=== PATIENT | female | born 1930 | race Caucasian/White ===

== ENCOUNTER 2019-02-05 09:52 | Inpatient (IN) | payer MEDICARE, OTHER ==
--- NOTE | 2019-02-05 10:20 | RAD ---
RIGHT HIP 2 VIEWS: Date: 02/05/19 HISTORY: Fall, right hip pain. FINDINGS/IMPRESSION: There is an intertrochanteric fracture involving the right proximal femur. POS: [facility]
--- NOTE | 2019-02-05 10:41 | RAD ---
RADIOGRAPH CHEST 1 VIEW: DATE: 02/05/2019 TIME: 10:18 AM HISTORY: 88-year-old female for preoperative clearance COMPARISON: None available FINDINGS: Cardiomegaly. Pulmonary venous engorgement. Hyperinflation consistent with COPD. Ectasia and tortuosi ty of thoracic aorta. No consolidation. Mild blunting of lateral costophrenic angles. No pneumothorax. IMPRESSION: 1. Cardiomegaly and pulmonary venous congestion. 2. Small bilateral pleural effusions versus pleural thickening 3. Emphysema
[2019-02-05] MEDS ORDERED: Clindamycin/D5W 900 MG in Premix Bag 1 BAG IVPB SCH (11:45)
[2019-02-05 12:20] LABS: #Basophils 0.1 thou/uL (0.0-0.2); #Eosinphils 0.1 thou/uL (0.0-0.7); #Lymphocytes 1.2 thou/uL (1.20-3.40); #Monocytes 0.5 thou/uL (0.11-0.59); #Neutrophils 6.5 thou/uL (1.40-6.50); %Lymphocytes 14.6 % (21.0-51.0); %Monocytes 5.7 % (0.0-10.0); %Neutrophils 77.7 % (42.0-75.0); Hemoglobin 11.3 g/dL (12.0-16.0); Mean Corpuscular Hemoglobin 31.7 pg (27.0-31.0); Mean Corpuscular Volume 95.8 fL (78.0-98.0); Mean Platelet Volume 9.2 fL (7.4-10.4); Platelet Count 271 thou/uL (130-400); RBC Distribution Width 14.8 % (11.5-14.5); Red Blood Cell (RBC) Count 3.56 mill/uL (4.20-5.40); White Blood Cell (WBC) Count 8.3 thou/uL (4.8-10.8)
--- NOTE | 2019-02-05 12:26 | CON ---
DATE OF CONSULTATION: This is Lio Watkins PA-C dictating a report for Jose Daniel Schroeder MD. HISTORY: We were asked by ER and Trauma to see the patient. The patient was in her normal state of health when she was getting some pants out of closet unfortunately fell. She fell a few days ago on her right hip, but she continued to be able to keep moving. She fell on the same hip and her definitely noticed she had some problems. Denies any loss of consciousness or hitting her head. They have recently moved back to [place], but she has been falling quite a bit. She has had Parkinson's for 18 years, and although she is able to answer questions and function fairly well, and state the falls have been more and more frequent. Pain is about a 5 when lying in bed. When we move her, it ramps up even higher. She has good sensations in both lower extremities. She is able to wiggle her toes. No other injuries sustained in the fall. PAST MEDICAL HISTORY: Positive for Parkinson's and hypertension. She has a heart arrhythmia, questionable murmur. PAST SURGICAL HISTORY: She has had splenectomy, appendectomy, partial hysterectomy, right wrist and hand surgery. INJURY: She has had a fractured pelvis, nonsurgical. She also had a fracture to her right cheekbone or orbit it sounds like. FAMILY HISTORY: Noncontributory to this admission. CURRENT MEDICATIONS: Sinemet, Folbic, midodrine, Requip, amantadine, Nuplazid, OTC med. She was taking aspirin, but has stopped taking this, and AREDS2. ALLERGIES: PENICILLIN, XYLOCAINE, HYDRALAZINE, GABAPENTIN, AND TRAMADOL. SOCIAL HISTORY: Retired. No alcohol, nicotine or drug products whatsoever. Recently moved back to [facility]. 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 No chest pain or shortness of breath. No neurological deficits. Otherwise, rest of review of systems is negative. PHYSICAL EXAMINATION: GENERAL: Well-nourished, pleasant lady, resting on gurney in room 9. Speech clear, fluent, and oriented x3. HEENT: Face symmetric. Tongue midline. NECK: Supple. Trachea midline. UPPER EXTREMITIES: Equal size, shape, symmetry, normal bulk and tone with exception of the right hand, that has some scarring and you can see that she has a flexion of her digits, and she is able to otherwise move fairly well. Sensations are intact. RESPIRATORY: No distress. ABDOMEN: Soft and nontender. PELVIS: No pain with rocking pelvis, but did cause right hip pain doing so. RIGHT LOWER EXTREMITY: Mildly shortened. DP and PT pulses are intact as are sensations. ASSESSMENT: Right hip pain. PLAN: I spoke with the patient and has been extensively elected to a [employer] plating dynamic hip screw. I explained the procedure technique to the and . They understand. They are amenable to go forth with surgery. I just need to get okay from Trauma to make sure she is medically stable and we would like to get her on the surgery schedule today. I went over the x-rays with the family, answered their questions, addressed their concerns, and they are so amenable to go forth with surgery. Job ID: [id number]
[2019-02-05 12:28] LABS: INR-International Normal Ratio 1.1; PTT 27.3 SEC (22.9-36.1); Prothrombin Time 14.2 SEC (12.0-14.7)
[2019-02-05 12:35] LABS: ALT (SGPT) 17 U/L (8-55); AST (SGOT) 24 U/L (5-34); Albumin 3.9 g/dL (3.4-4.8); Alkaline Phosphatase 101 U/L (40-150); Anion Gap 13 mmol/L (10-20); BUN (Urea Nitrogen) 20 mg/dL (9.8-20.1); Bilirubin, Total 0.6 mg/dL (0.2-1.2); Calc. Creatinine Clearance 0 mL/min (70-130); Calcium 9.2 mg/dL (7.8-10.44); Carbon Dioxide 27 mmol/L (23-31); Chloride 101 mmol/L (98-107); Estimated GFR-MDRD 38; Globulin 2.9 g/dL (2.4-3.5); Glucose 110 mg/dL (83-110); Potassium 4.3 mmol/L (3.5-5.1); Protein, Total 6.8 g/dL (6.0-8.3); Sodium 137 mmol/L (136-145)
[2019-02-05 12:57] LABS: CKMB 2.3 ng/mL (0-6.6)
[2019-02-05] MEDS ORDERED: Promethazine HCl 25 MG/ML VIAL IM PRN (14:13)
[2019-02-05] MEDS ORDERED: Dextrose 50% Abboject 50 ML SYRINGE SLOW IVP PRN (14:13)
[2019-02-05] MEDS ORDERED: Dextrose 5% in Water 1,000 ML IV PRN (14:13)
[2019-02-05] MEDS ORDERED: Ondansetron PF 4 MG/2 ML Vial IVP PRN (14:13)
[2019-02-05] MEDS ORDERED: Clindamycin/D5W 900 mg/50 ml Premix Bag ONE (14:34)
--- NOTE | 2019-02-05 15:18 | HP ---
This is Laura Juarez PA-C dictating a report for Axel Mora DO. TRAUMA SURGEON: Dr. Mora. CONSULTING PHYSICIAN: Dr. Schroeder. HISTORY OF PRESENT ILLNESS: The patient is an 88-year-old female, who reported a mechanical fall earlier today. The patient reported that she was reaching up to get a pair of pants from her closet when she had a fall. She reports no loss of consciousness. No dizziness or lightheadedness. She did not hit her head. She denies anticoagulation use as well. She denies numbness and tingling to her right lower extremity. Denies shortness of breath and chest pain. Denies nausea, vomiting, or diarrhea. REVIEW OF SYSTEMS: All additional 10-point review of systems negative except as indicated above. PAST MEDICAL HISTORY: Hypertension, Parkinson's, recent history of hallucinations, status post inpatient hospitalization with delirium, history of valvular disease needing valve replacement therapy, but the patient is a poor candidate. PAST SURGICAL HISTORY: Appendectomy, splenectomy, partial hysterectomy, and right wrist and right hand surgeries. SOCIAL HISTORY: The patient denies tobacco use. Drinks alcohol about once a year. Denies drug abuse. She did grow up in a home, where her father smoked in the home. Her previously smoked in the home, but has not smoked for the past 30 years. The patient lives in an independent living facility and has recently moved here. She had an appointment with a primary care physician to be seen for the first time today. There are no previous medical records in our system. MEDICATIONS: 1. Midodrine. 2. Sinemet. 3. Requip. 4. Amantadine. 5. Nuplazid. ALLERGIES: PENICILLIN, XYLOCAINE, HYDRALAZINE, GABAPENTIN, AND TRAMADOL. PHYSICAL EXAMINATION: VITAL SIGNS: Temperature 98.8, pulse 80, respirations 16, oxygen saturation 97% on room air, and blood pressure 176/112. PRIMARY SURVEY: Airway intact. Adequate breath sounds bilaterally. 2+ pulses in bilateral radials, femorals, and DPs. GCS is 15. Gross motor and sensation are intact. No lacerations, bruises, or external bleeding. SECONDARY SURVEY: HEAD: Normocephalic and atraumatic. No gross palpable skull deformities or tenderness. EYES: Pupils 3 to 2, equal, round, and reactive to light bilaterally. ENT: No hemotympanum. No epistaxis. No septal hematoma. Midface stable to manipulation. No blood in the oropharynx. Dentition is intact. No anterior neck injury/tenderness/crepitus. C-SPINE: No step-offs or deformities or tenderness to palpation. C-collar not in place. CHEST: Nontender. No crepitus or abrasions. No ecchymosis. Equal chest movement. CARDIAC: Regular rate and rhythm. Positive prominent mid systolic murmur. ABDOMEN: Soft, nontender, and nondistended. PELVIS: Stable to palpation. Positive right-sided pelvis and thigh tenderness. No abrasions or ecchymosis. RECTAL: Deferred. GENITOURINARY: Deferred. EXTREMITIES: No gross deformities. No abrasions or ecchymosis. 2+ pulses in bilateral radials, femorals, and DPs. BACK/SPINE: No step-offs or deformities or tenderness to palpation of the thoracic or lumbar spine. No abrasions or ecchymosis noted. 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 Gross normal sensation x4 extremities. LABORATORY FINDINGS: White count 8.3, hemoglobin 11.3, hematocrit 34.2, and platelets 271. INR 1.1. Sodium 137, potassium 4.3, chloride 101, carbon dioxide 27, BUN 20, creatinine 1.34, glucose 110, total bili 0.6, AST 24, and ALT 17. Troponin 0.039. DIAGNOSTIC FINDINGS: Chest x-ray demonstrates cardiomegaly and pulmonary venous congestion. Small bilateral pleural effusions versus pleural thickening, emphysema. X-ray of the right hip demonstrates there is an intertrochanteric fracture involving the right proximal femur. ASSESSMENT: 1. Status post mechanical fall from standing. 2. Right intertrochanteric femur fracture. 3. Acute kidney injury. 4. Cardiac valvular disease, unspecified. 5. Troponinemia. 6. History of hypertension, Parkinson's, and hallucinations associated with delirium. PLAN: The patient is to be admitted to the surgical floor. We will hold off on orthopedic surgical management for now while we further evaluate her heart valvular disease. We will complete an echo, repeat laboratory findings, and reassess for risk stratification for OR tomorrow. She will have a regular diet and will be n.p.o. tomorrow in case she is able to go to the operating room. We will also trend her troponins as it is slightly elevated on presentation to the emergency department. However, the patient denies chest pain, shortness of breath, or other concerning symptoms for possible NM. Her EKG was normal sinus with no ST-segment changes and such we will continue to monitor for now until her troponins downtrend. Postoperatively, she will work with Physical and Occupational Therapy. The patient is allergic to tramadol, hydralazine, and gabapentin and such we will not administer those medications as it is usually a part of the trauma admission protocol. Pain control with Tylenol, p.r.n. Flexeril and p.r.n. morphine. We will hold NSAIDs as she has an acute kidney injury. The patient was discussed with Dr. Mora this afternoon before this dictation. Job ID: [id number]
[2019-02-05] MEDS: Acetaminophen 1,000 MG in Premix Bag 1 BAG IVPB SCH ×2 (17:12→23:42)
[2019-02-05] MEDS ORDERED: Labetalol HCl 100 MG/20 ML VIAL SLOW IVP PRN (17:24)
[2019-02-05 18:07] VITALS: BMI 19.1
[2019-02-05 18:34] LABS: Troponin I 0.028 ng/mL (< 0.028)
[2019-02-05] MEDS: Senokot S 8.6-50 MG TAB PO SCH (19:50)
[2019-02-05] MEDS: Cyclobenzaprine 10 MG TAB PO PRN (20:44)
[2019-02-06] MEDS: Acetaminophen 1,000 MG in Premix Bag 1 BAG IVPB SCH ×2 (05:24→11:30)
[2019-02-06 06:12] LABS: #Basophils 0.1 thou/uL (0.0-0.2); #Eosinphils 0.2 thou/uL (0.0-0.7); #Lymphocytes 1.3 thou/uL (1.20-3.40); #Monocytes 0.6 thou/uL (0.11-0.59); #Neutrophils 4.9 thou/uL (1.40-6.50); %Basophils 0.8 % (0.0-1.0); %Eosinophils 3.5 % (0.0-10.0); %Lymphocytes 18.6 % (21.0-51.0); %Monocytes 8.7 % (0.0-10.0); %Neutrophils 68.4 % (42.0-75.0); Hemoglobin 10.9 g/dL (12.0-16.0); Mean Corpuscular HGB CONC 31.2 g/dL (32.0-36.0); Mean Corpuscular Hemoglobin 30.2 pg (27.0-31.0); Mean Corpuscular Volume 96.8 fL (78.0-98.0); Mean Platelet Volume 9.3 fL (7.4-10.4); Platelet Count 267 thou/uL (130-400); RBC Distribution Width 14.8 % (11.5-14.5); Red Blood Cell (RBC) Count 3.61 mill/uL (4.20-5.40); White Blood Cell (WBC) Count 7.1 thou/uL (4.8-10.8)
[2019-02-06 06:31] LABS: Anion Gap 10 mmol/L (10-20); BUN (Urea Nitrogen) 16 mg/dL (9.8-20.1); Calc. Creatinine Clearance 29 mL/min (70-130); Calcium 8.8 mg/dL (7.8-10.44); Carbon Dioxide 29 mmol/L (23-31); Chloride 102 mmol/L (98-107); Estimated GFR-MDRD 46; Glucose 99 mg/dL (83-110); Magnesium 2.1 mg/dL (1.6-2.6); Phosphorus 3.5 mg/dL (2.3-4.7); Potassium 3.8 mmol/L (3.5-5.1); Sodium 137 mmol/L (136-145)
[2019-02-06] MEDS ORDERED: Potassium Phosphate 15 MMOL in Sodium Chloride 0.9% 250 ML 250 ML IVPB SCH (08:00)
[2019-02-06] MEDS: Senokot S 8.6-50 MG TAB PO SCH ×2 (08:13→20:05)
[2019-02-06] MEDS: Polyethylene Glycol 3350 17 GM Packet PO SCH (08:13)
[2019-02-06] MEDS: rOPINIRole HCl 1 MG TAB PO SCH ×3 (08:54→20:03)
[2019-02-06] MEDS: Amantadine HCl 100 mg Capsule PO SCH (08:54)
[2019-02-06] MEDS: Carbidopa/Levodopa CR 50-200 mg Tablet PO SCH ×3 (08:54→20:03)
[2019-02-06] MEDS ORDERED: CARBIDOPA PO SCH (09:00)
[2019-02-06] MEDS ORDERED: LEVODOPA PO SCH (09:00)
[2019-02-06] MEDS ORDERED: ROPINIROLE HCL 3 MG PO SCH (09:00)
[2019-02-06] MEDS ORDERED: PIMAVANSERIN TARTRATE 34 MG PO SCH ×2 (09:00)
--- NOTE | 2019-02-06 12:51 | PRG ---
DATE OF SERVICE: 02/06/2019 SUBJECTIVE: This is a well-appearing, elderly female, sitting up in bed. On exam this morning, the patient's reports she has a history of a cath at a prior hospital stay where they decided not to do a valve repair. The patient reports that her pain is well controlled. She is n.p.o. for surgery with Dr. Schroeder. All questions were answered. OBJECTIVE: VITAL SIGNS: Temperature 98.2, pulse 72, blood pressure 101/82, respirations 18, and O2 95% on room air. GENERAL: This is a well-appearing, elderly female, sitting up in bed, interactive, able to answer questions. CARDIAC: Regular rate and rhythm. A 3/6 systolic murmur. No rubs or gallops. LUNGS: Bilaterally clear to auscultation. Equal chest rise bilaterally. No rales or rhonchi. ABDOMEN: Soft, nontender, and nondistended. EXTREMITIES: 2+ pulses in bilateral upper and lower extremities. NEUROLOGIC: 5/5 strength in upper and lower extremities. Gross normal sensation, intact. GCS 15. LABORATORY FINDINGS: White blood cell 7.1, hemoglobin 10.9, hematocrit 34.9, and platelets 267. Sodium 137, potassium 3.8, chloride 102, carbon dioxide 29, BUN 16, creatinine 1.13, GFR 46, phosphorus 3.5, and magnesium 2.1. Troponin 0.028. DIAGNOSTIC FINDINGS: Echocardiogram, 02/06/2019, ejection fraction visually estimated at 50% to 55%. Left ventricular size is normal. Mild concentric left ventricular hypertrophy. Mildly dilated left atrium. Severe aortic stenosis. Mild aortic regurgitation. Stebzhqp-[id number] mitral regurgitation present. Rbxvkkyf-[id number] tricuspid regurgitation. Right ventricular systolic pressure elevated. ASSESSMENT: 1. Status post mechanical fall from standing. 2. Right intertrochanteric femur fracture. 3. Acute kidney injury, improving. 4. Severe aortic stenosis. 5. Elevated troponin, resolved. 6. History of hypertension, Parkinson's, hallucinations associated with delirium. PLAN: The patient will be n.p.o. for possible surgery today after echocardiogram. The patient denies chest pain or shortness of breath. Postoperatively, we will restart her on a heart healthy diet. She will work with physical and occupational therapy. The patient is allergic to tramadol, hydralazine, gabapentin, and we will not administer those medications. Pain will be controlled with Tylenol, p.r.n. Flexeril, and p.r.n. morphine. We will continue to hold NSAIDs at this time with her acute kidney injury that is improving. The patient was seen and evaluated with Dr. Mora. Family was at bedside and is in agreement with the plan. Job ID: [id number] MTDD
[2019-02-06] MEDS ORDERED: Clindamycin/D5W 900 mg/50 ml Premix Bag ONE (13:08)
[2019-02-06] MEDS ORDERED: Levofloxacin 500 mg/D5W 100 ml Premix Bag ONE (13:09)
[2019-02-06] MEDS ORDERED: Fentanyl 100 MCG/2 ML VIAL ONE ×2 (13:31→15:00)
[2019-02-06] MEDS ORDERED: Rocuronium Bromide 10 MG/ML (10ML VIAL) ONE (14:16)
[2019-02-06] MEDS ORDERED: PROPOFOL 200 MG/20 ML VIAL ONE (14:16)
[2019-02-06] MEDS ORDERED: Ondansetron PF 4 MG/2 ML Vial ONE (14:16)
[2019-02-06] MEDS ORDERED: SUGAMMADEX SODIUM 500 MG/5 ML VIAL ONE (14:42)
[2019-02-06] MEDS ORDERED: Promethazine HCl 25 MG/ML VIAL IM PRN (14:51)
[2019-02-06] MEDS ORDERED: Ondansetron HCl/PF 4 MG/2 ML Vial IVP PRN (14:51)
[2019-02-06] MEDS ORDERED: Promethazine HCl 25 MG/ML VIAL SLOW IVP PRN (14:51)
--- NOTE | 2019-02-06 16:05 | RAD ---
Right hip 2 views intraoperative fluoroscopy. HISTORY: Hip fracture. FINDINGS: Intraoperative fluoroscopy was provided for internal fixation is performed by Dr. Schroeder . Spot fluoroscopic images show compression nail and side plate to transfix the right hip fracture. Alignment is anatomic. Fluoroscopy time 35 seconds.
[2019-02-06] MEDS ORDERED: Glycerin Adult Supp. (12 ct jar) RC PRN (19:57)
[2019-02-06] MEDS: Milk Of Magnesia 30 ML UDCUP PO PRN (20:02)
[2019-02-06] MEDS: Clindamycin/D5W 900 MG in Premix Bag 1 BAG IVPB SCH (20:05)
--- NOTE | 2019-02-06 21:01 | OP ---
DATE OF PROCEDURE: 02/06/2019 PROCEDURE PERFORMED: Open reduction internal fixation of right proximal femur fracture. PREOPERATIVE DIAGNOSIS: Right intertrochanteric femur fracture. POSTOPERATIVE DIAGNOSIS: Right intertrochanteric femur fracture. COMPLICATIONS: None. ESTIMATED BLOOD LOSS: 100 mL. ANESTHESIA: General. MANUFACTURING SUPERVISOR: Betzy Gonzalez PA-C. IMPLANT: Synthes three-hole dynamic hip screw and plate. INDICATIONS: Ms. Chacon is an 88-year-old female, who fell and fractured her proximal femur. She sustained an intertrochanteric fracture. She is indicated for open reduction and internal fixation to restore anatomic alignment to promote healing. Risks have been reviewed in detail. She elected to proceed with the operation. DESCRIPTION OF PROCEDURE: Ms. Chacon was identified in the preoperative holding area. Her correct extremity was marked. She was carried to the operating room. She was positioned supine. General anesthesia was induced. A multidisciplinary time-out was performed. The right lower extremity was prepped and draped in sterile fashion. We began the procedure with an incision over the lateral thigh. We dissected down through the subcutaneous tissues and incised the fascia. We split the vastus lateralis. At this point, we inserted a K-wire into the femoral head. We then used intraoperative x-ray to confirm guidewire placement. We measured an 80 mm length screw. We then overdrilled the guidewire. At this point, we placed our central screw and sideplate. Three screws were placed through the plate locking the plate to the bone. We took final images. We irrigated. We closed with 0 Vicryl suture, 2-0 Vicryl suture, and roro for the skin. A sterile dressing was applied. The patient was taken to the recovery room in good condition without complication at this point. Job ID: [id number]
[2019-02-06] MEDS: Morphine 2 MG/ML SYRINGE SLOW IVP PRN (22:55)
--- NOTE | 2019-02-07 00:56 | CON ---
DATE OF CONSULTATION: REASON FOR CONSULTATION: The patient is an unfortunate 88-year-old woman who has a history of Parkinson disease and severe aortic stenosis, who suffered a hip fracture. The patient has had Parkinson's for many years. She has a severe tremor. The patient also has severe aortic stenosis. She had been evaluated in [place] recently. She underwent a complete evaluation including cardiac catheterization. She was felt to be at a prohibitively risk for TAVR. The patient unfortunately suffered a hip fracture today and underwent surgery. She apparently had no complications. The patient denies having any chest pain or dyspnea. PAST MEDICAL HISTORY: Significant for: 1. Aortic stenosis. 2. Parkinson disease. 3. Hypertension. ALLERGIES: SHE IS ALLERGIC TO: 1. GABAPENTIN. 2. HYDRALAZINE. 3. LIDOCAINE. 4. PENICILLIN. 5. XYLOCAINE. 6. TRAMADOL. PAST SURGICAL HISTORY: MEDICATIONS: On admission: 1. Midodrine 10 mg one tablet daily. 2. Sinemet 10, 100 mg daily. 3. Requip 1 mg daily. SOCIAL HISTORY: Nonsmoker. PHYSICAL EXAMINATION: GENERAL: This is an elderly woman who has a severe tremor, in no acute distress. VITAL SIGNS: Blood pressure 128/78. NECK: Showed no jugular venous distention. LUNGS: Clear to auscultation. HEART: Regular rate and rhythm. Normal S1 and S2 with a 3/6 systolic ejection murmur. ABDOMEN: Nondistended. EXTREMITIES: Showed no edema, vascular and radial pulses 2+. LABORATORY DATA: Sodium 137, potassium 3.8, chloride 103, bicarbonate 29, BUN 16, creatinine 1.13. White blood cell count 7.1, hemoglobin 10.9, hematocrit 34.9 and her platelets are 267. INR 1.1. Her echocardiogram revealed normal left ventricular ejection fraction with severe aortic stenosis. Her EKG revealed normal sinus rhythm, left axis deviation and left ventricular hypertrophy IMPRESSION: 1. Status post hip surgery. 2. Severe aortic stenosis. 3. Parkinson disease. 4. Mitral regurgitation. PLAN: This unfortunate woman has severe aortic stenosis and Parkinson disease. She has undergone evaluation for TAVR and felt apparently to be a prohibitive risk. Fortunately, she underwent surgery today and apparently had no significant cardiac complications. It is imperative that this patient not become volume depleted or hypotensive. I will follow this patient with you through her hospitalization in my office and Dr. Mora will be the admitting physician. Job ID: [id number]
[2019-02-07] MEDS: Cyclobenzaprine 10 MG TAB PO PRN (02:58)
[2019-02-07] MEDS: Clindamycin/D5W 900 MG in Premix Bag 1 BAG IVPB SCH (05:20)
[2019-02-07] MEDS: Morphine 2 MG/ML SYRINGE SLOW IVP PRN (05:23)
[2019-02-07 06:09] LABS: #Eosinphils 0.1 thou/uL (0.0-0.7); #Lymphocytes 0.8 thou/uL (1.20-3.40); #Monocytes 0.8 thou/uL (0.11-0.59); #Neutrophils 6.2 thou/uL (1.40-6.50); %Basophils 0.3 % (0.0-1.0); %Eosinophils 1.7 % (0.0-10.0); %Lymphocytes 10.1 % (21.0-51.0); %Monocytes 10.5 % (0.0-10.0); %Neutrophils 77.4 % (42.0-75.0); Hemoglobin 9.3 g/dL (12.0-16.0); Mean Corpuscular HGB CONC 32.4 g/dL (32.0-36.0); Mean Corpuscular Hemoglobin 30.8 pg (27.0-31.0); Mean Corpuscular Volume 95.2 fL (78.0-98.0); Mean Platelet Volume 9.3 fL (7.4-10.4); Platelet Count 228 thou/uL (130-400); RBC Distribution Width 14.7 % (11.5-14.5); Red Blood Cell (RBC) Count 3.02 mill/uL (4.20-5.40)
[2019-02-07 06:24] LABS: Anion Gap 12 mmol/L (10-20); BUN (Urea Nitrogen) 20 mg/dL (9.8-20.1); Calc. Creatinine Clearance 27 mL/min (70-130); Calcium 8.6 mg/dL (7.8-10.44); Carbon Dioxide 27 mmol/L (23-31); Chloride 101 mmol/L (98-107); Estimated GFR-MDRD 41; Glucose 121 mg/dL (83-110); Magnesium 1.9 mg/dL (1.6-2.6); Phosphorus 3.8 mg/dL (2.3-4.7); Potassium 4.7 mmol/L (3.5-5.1); Sodium 135 mmol/L (136-145)
[2019-02-07] MEDS ORDERED: Ibuprofen 200 MG TAB PO PRN (08:39)
[2019-02-07] MEDS ORDERED: Lactated Ringer's 250 ML IV SCH (08:45)
[2019-02-07] MEDS ORDERED: Ibuprofen 800 MG TAB PO SCH (08:45)
[2019-02-07] MEDS ORDERED: Morphine 4 MG/ML VIAL ONE (10:08)
[2019-02-07] MEDS ORDERED: Morphine 2 MG/ML SYRINGE SLOW IVP SCH (10:15)
[2019-02-07] MEDS: rOPINIRole HCl 1 MG TAB PO SCH ×3 (10:29→20:17)
[2019-02-07] MEDS: Polyethylene Glycol 3350 17 GM Packet PO SCH (10:29)
[2019-02-07] MEDS: Amantadine HCl 100 mg Capsule PO SCH (10:29)
[2019-02-07] MEDS: Senokot S 8.6-50 MG TAB PO SCH ×2 (10:29→20:17)
[2019-02-07] MEDS: Acetaminophen 325 MG TAB PO SCH ×3 (10:29→22:52)
[2019-02-07] MEDS: Carbidopa/Levodopa CR 50-200 mg Tablet PO SCH ×3 (10:30→20:16)
[2019-02-07] MEDS: Acetaminophen/Codeine 30-300mg Tablet PO SCH ×3 (10:30→20:16)
[2019-02-07] MEDS: Aspirin 81 mg Enteric Coated Tablet PO SCH ×2 (10:30→20:17)
[2019-02-07] MEDS ORDERED: Acetaminophen 1,000 MG in Premix Bag 1 BAG IVPB SCH (12:00)
--- NOTE | 2019-02-07 20:58 | PRG ---
DATE OF SERVICE: 02/07/2019 SUBJECTIVE: The patient was seen this morning. She is status post one day from ORIF of her right hip fracture. The patient has been eating, drinking, and voiding well, and has not had a bowel movement yet. The patient was in a lot of pain this morning, rated her pain while she is being moved at 10/10 and at 0/10 while she was lying still. OBJECTIVE: VITAL SIGNS: Temperature 97.7, pulse 84, respirations 18, O2 saturations 95% on room air, and blood pressure 105/69. GENERAL: This is an elderly female, who appears to be in severe pain at bedside. She is moving around and appearing uncomfortable in the bed. She is not able to lie still. CARDIAC: 3/6 systolic murmur. No rubs or gallops. PULMONARY: Lungs are bilaterally clear to auscultation. No rales or rhonchi. ABDOMEN: Abdomen is soft, nondistended, with positive bowel sounds. No rebound or rigidity. EXTREMITIES: Pulses are 2+ in upper and lower extremities. There is no gross edema. NEUROLOGIC: GCS is 15. Gross motor and sensation intact. LABORATORY DATA: White blood cells 8.0, hemoglobin 9.3, platelets 228. Sodium 135, potassium 4.7, chloride 101, carbon dioxide 27, BUN 20, creatinine 1.24, calcium 8.6, phosphorus 3.8, magnesium 1.9. DIAGNOSTIC IMAGING: There are no new diagnostic findings to report. ASSESSMENT: 1. Status post mechanical fall from standing. 2. Right intertrochanteric femur fracture. 3. Acute kidney injury, improving. 4. Severe aortic stenosis. 5. Elevated troponin, resolved. 6. History of hypertension, Parkinson's, hallucinations associated with delirium. PLAN: The patient is postop day 1 from ORIF of the right hip. The patient was given morphine as well as 250 mL bolus for her pain as well as her hypotension overnight. The patient will continue to work with Physical and Occupational Therapy. We will schedule her pain medicines. We will avoid tramadol, hydralazine, gabapentin as those are on her allergy list. We will continue to monitor her blood pressure for further hypotension and administer fluids as necessary due to her severe aortic stenosis. We will also be monitoring for signs and symptoms of fluid overload. The patient was seen and evaluated this morning during morning rounds. The patient was discussed with Dr. Mora. Family was at bedside and is in agreement with the plan. Job ID: [id number]
[2019-02-08] MEDS: Acetaminophen 325 MG TAB PO SCH ×4 (03:20→21:34)
[2019-02-08] MEDS: Acetaminophen/Codeine 30-300mg Tablet PO SCH ×4 (03:20→20:36)
[2019-02-08] MEDS: Amantadine HCl 100 mg Capsule PO SCH (08:44)
[2019-02-08] MEDS: Senokot S 8.6-50 MG TAB PO SCH ×2 (08:44→20:36)
[2019-02-08] MEDS: Aspirin 81 mg Enteric Coated Tablet PO SCH ×2 (08:44→20:37)
[2019-02-08] MEDS: Polyethylene Glycol 3350 17 GM Packet PO SCH (08:44)
[2019-02-08] MEDS: Carbidopa/Levodopa CR 50-200 mg Tablet PO SCH ×3 (08:45→20:36)
[2019-02-08] MEDS: rOPINIRole HCl 1 MG TAB PO SCH ×3 (08:46→20:35)
--- NOTE | 2019-02-08 16:55 | PRG ---
DATE OF SERVICE: 02/08/2019 SUBJECTIVE: The patient was seen this morning with no complaints. The patient had no overnight events. The patient states that she slept good. The patient is postop day #2 open reduction and internal fixation of the right proximal femur fracture. OBJECTIVE: VITAL SIGNS: Temperature 98.5, pulse 82, respirations 18, SpO2 of 94% on room air, and blood pressure 138/86. GENERAL: The patient is awake and alert, in no distress. Reports pain is controlled. RESPIRATORY: Symmetrical chest movement. No respiratory distress. Bilateral breath sounds clear. CARDIAC: 3/6 systolic murmur. ABDOMEN: Soft, nontender, and nondistended. EXTREMITIES: Pulses 2+ in upper and lower extremities. No pedal edema. NEUROLOGIC: GCS of 15. No focal deficits. LABORATORY DATA: There are no labs to evaluate today. DIAGNOSTIC DATA: There are no diagnostics to review. IMPRESSION: 1. Status post mechanical fall from standing. 2. Postoperative day #2 open reduction and internal fixation right intertrochanteric femur fracture. 3. Acute kidney injury, improving. 4. Severe aortic stenosis. 5. History of hypertension, Parkinson, and hallucinations associated with delirium. PLAN: We will continue pain regimen. We will continue physical and occupational therapy. The patient is pending rehab placement. We will set up a followup appointment with Neurology as the patient has recently moved from another town and needs a new neurologist to manage her Parkinson medication. The patient was evaluated with Dr. Mora during morning rounds. The plan was discussed with the patient and family, who also agree. Job ID: [id number]
[2019-02-08] MEDS: Milk Of Magnesia 30 ML UDCUP PO PRN (16:59)
[2019-02-09] MEDS: Acetaminophen 325 MG TAB PO SCH ×2 (03:21→10:42)
[2019-02-09] MEDS: Acetaminophen/Codeine 30-300mg Tablet PO SCH ×3 (03:21→15:48)
--- NOTE | 2019-02-09 04:35 | DIS ---
DATE OF ADMISSION: 02/05/2019 DATE OF DISCHARGE: 02/08/2019 CONSULTS: Dr. Schroeder, Orthopedic Surgery. PROCEDURES: 1. Chest x-ray on 02/05/2019, demonstrates cardiomegaly and pulmonary venous congestion. Small bilateral pleural effusions versus pleural thickening, emphysema. 2. 02/05/2019, x-ray of right hip demonstrates there is an intertrochanteric fracture involving the right proximal femur. 3. 02/06/2019, open reduction and internal fixation of right proximal femur fracture by Dr. Schroeder. PRIMARY DIAGNOSES: Right intertrochanteric femur fracture, fall from standing. SECONDARY DIAGNOSES: 1. Acute kidney injury, resolved. 2. Cardiac valve disease. 3. History of hypertension, Parkinson's, hallucinations associated with delirium. DISCHARGE MEDICATIONS: 1. Acetaminophen 650 mg q.6 hours. 2. Acetaminophen with Codeine 300/30 mg tabs q.6 hours. 3. Amantadine 100 mg p.o. q.a.m. 4. Aspirin 81 mg b.i.d. for 30 days. 5. Carbidopa/levodopa 25 mg/100 mg 3 tabs p.o. t.i.d. 6. Flexeril 5 mg p.o. 3 times a day. 7. MiraLAX as needed. 8. Requip 3 mg tablets p.o. 3 times a day. 9. Senokot S as needed. 10. Nuplazid 34 mg p.o. daily. 11. There are no discontinued medications. HISTORY OF PRESENT ILLNESS AND HOSPITAL COURSE: This is an 88-year-old female, who had a mechanical fall. The patient states she was reaching up to grab something out of her closet when she fell. The patient had no loss of consciousness. The patient had no dizziness or lightheadedness prior to falling. The patient denies hitting in her head. The patient also denied any shortness of breath or chest pain prior to falling. The patient was examined by Dr. Mora during morning rounds. On the day of discharge, the patient was seen and evaluated and with normal vital signs. The patient and family had no complaints. There was discussion about the patient's Parkinson's medications and the patient recently moving to this area. The patient is in need for a neurologist to manage her Parkinson medications. The patient's exam was unremarkable including cardiopulmonary and GI exam. The patient was deemed stable for discharge to inpatient rehab for continued physical and occupational therapy. DISPOSITION: Stable. DISCHARGE INSTRUCTIONS: 1. Location: Inpatient rehab. 2. Diet: Regular diet. 3. Activity: Weightbearing as tolerated, hip precautions. 4. Followup: Follow up with Dr. Schroeder in 2 weeks. Follow up with Dr. Lezama, Neurology in 1 week to follow the patient's Parkinson medications. Call Dr. Mora's office as needed, no need for followup. Follow up with Dr. Mckeon as needed. Job ID: [id number] MTDD
[2019-02-09] MEDS: rOPINIRole HCl 1 MG TAB PO SCH ×2 (08:51→15:49)
[2019-02-09] MEDS: Carbidopa/Levodopa CR 50-200 mg Tablet PO SCH ×2 (08:51→15:48)
[2019-02-09] MEDS: Senokot S 8.6-50 MG TAB PO SCH (08:52)
[2019-02-09] MEDS: Amantadine HCl 100 mg Capsule PO SCH (08:52)
[2019-02-09] MEDS: Aspirin 81 mg Enteric Coated Tablet PO SCH (08:52)
[2019-02-09] MEDS: Polyethylene Glycol 3350 17 GM Packet PO SCH (08:53)
[2019-02-09 15:41] VITALS: BP 169/99; TEMP 97.7
== END 2019-02-09 16:20 | DRG 481 ==
LOC: ERS 09:52 → SURG A 17:04
PROVIDERS: ADMIT Surgery; ATTEND Surgery
PROC: 0QS604Z Reposition Right Upper Femur with Internal Fixation Device, Open Approach (ICD-10-PCS; principal; 2019-02-06)
DX: S72.141A Displaced intertrochanteric fracture of right femur, initial encounter for closed fracture (principal); N17.9 Acute kidney failure, unspecified; G20 Parkinson's disease; I10 Essential (primary) hypertension; I08.3 Combined rheumatic disorders of mitral, aortic and tricuspid valves; R79.89 Other specified abnormal findings of blood chemistry; W18.30XA Fall on same level, unspecified, initial encounter; Y92.9 Unspecified place or not applicable; Z90.49 Acquired absence of other specified parts of digestive tract; Z90.710 Acquired absence of both cervix and uterus; Z88.0 Allergy status to penicillin; Z88.8 Allergy status to other drugs, medicaments and biological substances; Z88.5 Allergy status to narcotic agent; Z79.899 Other long term (current) drug therapy
CPT/HCPCS: 36415; 51702; 71045; 76000; 80048; 80053; 82553; 83735; 84100; 84484; 85025; 85610; 85730; 93005; 93306; 96365; C1713; C1769; G0390; J0131; J1956; J2270; J2405; J2704; J3010; J3490; J7050

== ENCOUNTER 2019-03-04 11:06 | Emergency (ER) | payer MEDICARE, OTHER ==
--- NOTE | 2019-03-04 12:01 | CT ---
CT BRAIN WITHOUT CONTRAST: HISTORY: Fall, head injury. FINDINGS: Comparison is made with the exam of 02/14/2019. Changes of chronic small-vessel ischemic disease are again seen. The ventricular size is appropriate and the basilar cisterns are patent. No evidence of acute infarct, hemorrhage, midline shift, or ab normal extraaxial fluid collections is seen. The bony calvarium is intact. The visualized paranasal sinuses and mastoid air cells are well aerated. IMPRESSION: No CT evidence of acute intracranial process. POS: [facility]
--- NOTE | 2019-03-04 12:01 | CT ---
CT CERVICAL SPINE WITH CORONAL AND SAGITTAL REFORMATIONS: HISTORY: Fall, neck pain. FINDINGS/IMPRESSION: Multilevel degenerative changes are present. No acute fracture, subluxation, or facet malalignment i s identified. POS: DEBORAH
[2019-03-04 12:15] LABS: #Lymphocytes 0.9 thou/uL (1.20-3.40); #Monocytes 0.7 thou/uL (0.11-0.59); #Neutrophils 5.1 thou/uL (1.40-6.50); %Basophils 0.3 % (0.0-1.0); %Eosinophils 0.6 % (0.0-10.0); %Lymphocytes 12.8 % (21.0-51.0); %Monocytes 9.8 % (0.0-10.0); %Neutrophils 76.4 % (42.0-75.0); Hemoglobin 9.6 g/dL (12.0-16.0); Mean Corpuscular HGB CONC 31.8 g/dL (32.0-36.0); Mean Corpuscular Hemoglobin 30.9 pg (27.0-31.0); Mean Corpuscular Volume 97.3 fL (78.0-98.0); Mean Platelet Volume 8.9 fL (7.4-10.4); Platelet Count 299 thou/uL (130-400); RBC Distribution Width 17.3 % (11.5-14.5); White Blood Cell (WBC) Count 6.7 thou/uL (4.8-10.8)
[2019-03-04 12:27] LABS: ALT (SGPT) Less than 7 U/L (8-55); AST (SGOT) 22 U/L (5-34); Albumin 3.5 g/dL (3.4-4.8); Alkaline Phosphatase 162 U/L (40-150); Anion Gap 15 mmol/L (10-20); BUN (Urea Nitrogen) 26 mg/dL (9.8-20.1); Calc. Creatinine Clearance 0 mL/min (70-130); Carbon Dioxide 25 mmol/L (23-31); Chloride 104 mmol/L (98-107); Estimated GFR-MDRD 48; Globulin 3.2 g/dL (2.4-3.5); Glucose 97 mg/dL (83-110); Potassium 3.9 mmol/L (3.5-5.1); Protein, Total 6.7 g/dL (6.0-8.3); Sodium 140 mmol/L (136-145)
--- NOTE | 2019-03-04 13:29 | RAD ---
TWO VIEWS OF THE RIGHT HIP: COMPARISON: 02/15/2019. HISTORY: Fall with right hip pain. FINDINGS: Two views of the right hip show the patient to be status post ORIF of an intratrochanteric right femu r fracture. The hardware is unchanged compared to the prior examination. No new fractures are seen. IMPRESSION: Status post open reduction internal fixation of intratrochanteric right femur fracture. POS: C
--- NOTE | 2019-03-04 13:31 | RAD ---
THREE VIEWS OF THE LEFT HIP: COMPARISON: None. HISTORY: Ground level fall with left hip pain. FINDINGS: Two views of the left hip show no evidence of acute fracture or dislocation. Mild degenerative morejon e is seen in the left hip. Mild soft tissue swelling is seen. IMPRESSION: No evidence of acute osseous abnormality. POS: C
== END 2019-03-04 16:48 ==
LOC: ERS 11:06
DX: S09.90XA Unspecified injury of head, initial encounter (principal); D64.9 Anemia, unspecified; M25.552 Pain in left hip; G20 Parkinson's disease; I10 Essential (primary) hypertension; Z79.899 Other long term (current) drug therapy; Z79.82 Long term (current) use of aspirin; W18.11XA Fall from or off toilet without subsequent striking against object, initial encounter; Y92.002 Bathroom of unspecified non-institutional (private) residence as the place of occurrence of the external cause
CPT/HCPCS: 36415; 70450; 72125; 80053; 85025

== ENCOUNTER 2019-05-03 17:03 | Inpatient (IN) | payer MEDICARE, OTHER ==
[2019-05-03 17:36] LABS: #Basophils 0.1 thou/uL (0.0-0.2); #Eosinphils 0.2 thou/uL (0.0-0.7); #Lymphocytes 1.5 thou/uL (1.20-3.40); #Monocytes 0.6 thou/uL (0.11-0.59); #Neutrophils 3.2 thou/uL (1.40-6.50); %Basophils 1.4 % (0.0-1.0); %Eosinophils 2.8 % (0.0-10.0); %Lymphocytes 26.9 % (21.0-51.0); %Monocytes 10.1 % (0.0-10.0); %Neutrophils 58.8 % (42.0-75.0); Hemoglobin 11.1 g/dL (12.0-16.0); Mean Corpuscular Hemoglobin 31.6 pg (27.0-31.0); Mean Corpuscular Volume 98.7 fL (78.0-98.0); Mean Platelet Volume 8.9 fL (7.4-10.4); Platelet Count 280 thou/uL (130-400); RBC Distribution Width 15.7 % (11.5-14.5); Red Blood Cell (RBC) Count 3.51 mill/uL (4.20-5.40); White Blood Cell (WBC) Count 5.5 thou/uL (4.8-10.8)
--- NOTE | 2019-05-03 17:45 | RAD ---
XR Hip Rt 2-3 View HISTORY: Fell from wheelchair with right hip pain COMPARISON: 03/04/2019 study. FINDINGS: An intertrochanteric fracture is stabilized with a compression screw and sideplate. The pos ition of the fracture does not appear significantly different than the prior exam. IMPRESSION: Stable exam.
--- NOTE | 2019-05-03 17:53 | CT ---
CT Brain WO Con HISTORY: Fall with head injury COMPARISON: 03/04/2019 study. FINDINGS: There is generalized ventricular and sulcal prominence. There is decreased attenuation to t he periventricular white matter consistent with chronic white matter change. There are no signs of intracerebral hemorrhage or extra-axial. The mastoid air cells and visualized sinuses are clear. IMPRESSION: No acute intracranial abnormalities.
[2019-05-03 17:59] LABS: ALT (SGPT) Less than 7 U/L (8-55); AST (SGOT) 16 U/L (5-34); Albumin 3.6 g/dL (3.4-4.8); Alkaline Phosphatase 154 U/L (40-150); Anion Gap 13 mmol/L (10-20); BUN (Urea Nitrogen) 30 mg/dL (9.8-20.1); Bilirubin, Total 0.3 mg/dL (0.2-1.2); CK (CPK) 108 U/L (29-168); Calc. Creatinine Clearance 0 mL/min (70-130); Calcium 9.1 mg/dL (7.8-10.44); Carbon Dioxide 26 mmol/L (23-31); Chloride 102 mmol/L (98-107); Estimated GFR-MDRD 42; Globulin 3.2 g/dL (2.4-3.5); Glucose 122 mg/dL (83-110); Potassium 3.8 mmol/L (3.5-5.1); Protein, Total 6.8 g/dL (6.0-8.3); Sodium 137 mmol/L (136-145)
--- NOTE | 2019-05-03 19:00 | RAD ---
XR Chest 1 View Portable HISTORY: Fall COMPARISON: 02/05/2019 study FINDINGS: Heart size is enlarged. There are atherosclerotic changes of the aorta. Chronic lung change s are seen. The bones are demineralized. IMPRESSION: Cardiomegaly with chronic lung change.
[2019-05-03] MEDS ORDERED: Furosemide 40 MG/4 ML VIAL ONE (19:03)
[2019-05-03 19:59] LABS: Bilirubin Negative (Negative); Blood, Urine Negative (Negative); Clarity Clear (Clear); Glucose, Urine (Dipstick) Normal (Negative); Leukocyte Negative Leu/uL (Negative); Nitrite Negative (Negative); Protein, Urine (Dipstick) 10 mg/dL (Neg-Trace); Urobilinogen Normal mg/dL (Less than 2)
[2019-05-03 22:06] VITALS: BMI 17.6
[2019-05-03] MEDS ORDERED: Carbidopa/Levodopa 25-100 mg Tablet PO SCH (23:00)
[2019-05-03] MEDS ORDERED: rOPINIRole HCl 1 MG TAB PO SCH (23:15)
[2019-05-04] MEDS ORDERED: Furosemide 40 MG/4 ML VIAL SLOW IVP SCH (04:00)
[2019-05-04] MEDS: Aspirin 81 mg Enteric Coated Tablet PO SCH (08:21)
[2019-05-04] MEDS: Carbidopa/Levodopa CR 50-200 mg Tablet PO SCH ×3 (08:22→20:45)
[2019-05-04] MEDS: rOPINIRole HCl 1 MG TAB PO SCH ×3 (08:23→20:46)
[2019-05-04] MEDS: Polyethylene Glycol 3350 17 GM Packet PO SCH (08:23)
[2019-05-04] MEDS: Senokot S 8.6-50 MG TAB PO SCH ×2 (08:23→20:45)
[2019-05-04] MEDS ORDERED: Amantadine HCl 100 mg Capsule PO SCH (09:00)
[2019-05-04] MEDS ORDERED: Ondansetron PF 4 MG/2 ML Vial IVP PRN (09:40)
[2019-05-04] MEDS ORDERED: Ondansetron ODT 4 MG TAB PO PRN (09:40)
[2019-05-04] MEDS ORDERED: Acetaminophen 325 MG TAB PO PRN (09:40)
[2019-05-04 10:13] LABS: Anion Gap 15 mmol/L (10-20); BUN (Urea Nitrogen) 28 mg/dL (9.8-20.1); Calc. Creatinine Clearance 27 mL/min (70-130); Calcium 9.2 mg/dL (7.8-10.44); Carbon Dioxide 32 mmol/L (23-31); Chloride 95 mmol/L (98-107); Estimated GFR-MDRD 45; Glucose 102 mg/dL (83-110); Potassium 3.7 mmol/L (3.5-5.1); Sodium 138 mmol/L (136-145)
[2019-05-04 10:18] LABS: Troponin I 0.025 ng/mL (< 0.028)
--- NOTE | 2019-05-04 11:23 | HP ---
PRIMARY CARE PHYSICIAN: Jose Daniel Schroeder MD CHIEF COMPLAINT: Right hip and head pain. HISTORY OF PRESENT ILLNESS: An 88-year-old female with known history of Parkinson disease complicated by autonomic neuropathy with labile hypertension and movement disorder associated with falls, brought in from her independent living facility due to frequent falls associated with right hip and head pain. The patient reportedly has been falling frequently in the last few weeks and on the day of presentation, she fell two times hitting the right hip and head and sustaining some pain at those places. The patient denied loss of consciousness. She actually fell while sitting on a wheelchair due to increased involuntary movements. The patient lives in the independent living with and moves around in a wheelchair. She currently gets home PT. There is no history of chest pain, palpitations, dizziness, nausea, vomiting, cough, shortness of breath, orthopnea, PND. She admitted to mild leg swelling recently which has subsided. The patient has history of valvular heart disease, which was thought to be in need of replacement, but on follow evaluation was thought not to be as severe, hence replacement was not pursued while in [place]. The patient also had a fall in January 2019 during which she sustained fracture of right hip requiring open reduction and internal fixation. In the emergency room, the patient was evaluated with CT scan and x-rays, which showed no acute abnormality. She also had BNP which was markedly elevated above 3000, hence new onset CHF diagnosis was made and the patient was admitted for further evaluation and treatment. PAST MEDICAL HISTORY: 1. Labile hypertension. 2. Parkinson disease. 3. Movement disorder. 4. Valvular heart disease. 5. Hallucinations. PAST SURGICAL HISTORY: 1. Right hip open reduction and internal fixation. 2. Appendectomy. 3. Splenectomy. 4. Partial hysterectomy. 5. Right hip, right wrist, and hand surgeries. FAMILY HISTORY: Reviewed, but noncontributory. SOCIAL HISTORY: The patient lives with in an independent living. The patient denied tobacco or recreational drug use. Occasionally once in a year drinks alcohol. The patient wants to be full code. Her is the surrogate decision maker. ALLERGIES: 1. GABAPENTIN. 2. HYDRALAZINE. 3. LIDOCAINE. 4. PENICILLIN. 5. TRAMADOL. CURRENT MEDICATIONS: 1. Amantadine 100 mg p.o. daily. 2. Aspirin 81 mg p.o. daily. 3. Sinemet CR 25 mg/100 mg 3 tablets p.o. t.i.d. 4. Ibuprofen 400 mg p.o. daily. 5. Ibuprofen 800 mg p.o. daily at bedtime. 6. Midodrine 20 mg p.o. p.r.n. 7. Requip 3 mg p.o. t.i.d. 8. Acetaminophen 650 mg p.o. q.6 p.r.n. 9. MiraLAX 17 g p.o. daily. 10. Sennosides/docusate sodium 8.6/50 mg two tablets p.o. b.i.d. REVIEW OF SYSTEMS: Twelve-point review of system performed was negative other than pertinent positives and negatives included in the history of present illness. PHYSICAL EXAMINATION: VITAL SIGNS: Initial vitals on presentation to the emergency room on May 03 showed the following: Blood pressure 160/109, pulse 67, respiratory rate 22, and SpO2 95% on room air. Most current vitals May 04 at 7:12 a.m. showed temperature 98.4, pulse 63, respiratory rate 18, SpO2 of 95% on room air, and blood pressure is 162/104. GENERAL: Elderly female, with involuntary movement of head and neck noted. Afebrile. Anicteric. No obvious distress. HEENT: Normocephalic, atraumatic. Oral mucosa is moist. Pupils are reacting to light. NECK: Supple, nontender with full range of motion. Involuntary movement of the neck noted. No JVD appreciated. CARDIOVASCULAR: Regular rhythm and rate with normal heart sounds 1 and 2. 3/6 systolic murmur heard noted. RESPIRATORY: Fair air entry bilaterally with few transmitted sounds. No obvious crackle or rhonchi or use of accessory muscles appreciated. The patient is not tachypneic and she is not in any respiratory distress. GI: Full, soft, nontender, nondistended with normal bowel sounds. EXTREMITIES: Grossly normal looking, atraumatic with no edema, erythema, or cyanosis. Distal pulses are palpable. NEUROLOGIC: Conscious and alert, oriented x3 with appropriate mental status. Cranial nerves 2 through 12 are grossly intact. Involuntary movement of head and neck and some tremors of the hand noted. The patient moves all extremities appropriately with symmetric power. Some fine tremor noted. PSYCHIATRIC: Oriented with normal affect and good insight. DIAGNOSTIC DATA: CBC on May 03 showed WBC count of 5.5, hemoglobin of 11.1, MCV of 98.7, platelet of 280. CMP performed on May 03 showed sodium 137, potassium 3.8, chloride 102, CO2 of 26, BUN 30, creatinine 1.21, glucose 122, calcium 9.1, total bilirubin 0.3, AST 16, ALT less than 7, alkaline phosphatase 154, total protein 6.8, albumin 3.6, globulin 3.8. Cardiac markers showed CK 108, BNP 3934.5. Of note, there is no troponin. Urinalysis obtained on May 03, 2019, showed clear urine with pH of 5.5, specific gravity of 1.021, urine protein 10 mg/dL, glucose is normal, ketone is trace. Blood, nitrite, bilirubin, and leukocyte esterase were all negative. Chest x-ray performed on May 03 showed an enlarged heart size with atherosclerotic changes of the aorta as well as chronic lung changes. CT scan of the brain showed no acute intracranial abnormality. There is generalized ventricular and sulcal prominence as well as decreased attenuation to the periventricular white matter consistent with chronic white matter changes. X-ray of the hip showed stable intratrochanteric fracture with a compression screw and sideplate. There was no acute finding. Echocardiogram of January 2019 showed normal left ventricular systolic function with ejection fraction of 50 to 55 as well as mild concentric left ventricular hypertrophy, severe aortic stenosis, [id number]-qn-[id number] mitral regurgitation and qfmldtud-dh-yqkcfp tricuspid regurgitation with right ventricular systolic pressure elevation. ASSESSMENT: 1. Frequent falls: Due to worsening movement disorder related to Parkinson's. 2. Parkinson disease with movement disorder and hallucination as well as autonomic dysfunction. 3. Labile hypertension: The patient is known to have labile high blood pressure for which she takes midodrine. Blood pressure is said to fluctuate between 80s to 200s systolic. So far, blood pressures have been fairly stable. 4. Valvular heart disease: The patient is known to have severe aortic stenosis as well as lmezrbor-ej-lkrxit mitral regurgitation. 5. Elevated BNP: The patient is thought to have new onset heart failure. She however denied PND, orthopnea, or leg swelling. Elevated BNP most likely is related to valvular heart disease, but this seems to be compensated. 6. Right hip pain. 7. Head pain: Subsided. 8. Chronic kidney disease stage 3 with possible reversible component: Most likely related to hemodynamic factors due to NSAID use. The patient is on ibuprofen 400 in the morning and 800 in evening daily. 9. Gait instability. PLAN: 1. We will get troponin as well as echocardiogram to assess cardiac function. 2. We will get PT and OT evaluation and treatment. The patient needs aggressive physical therapy. 3. We will also consult Neurology to re-evaluate the patient with a view to adjust the medication to improve movement disorder. 4. We will continue current home medications. 5. We will however hold NSAID at this time. 6. We will monitor renal function in the morning. 7. Diet as tolerated. Anticipated detention facility placement for further restorative therapy. Case management has been consulted to this effect. 8. Code status: Full code. The patient's spouse is the surrogate decision maker. Job ID: [id number]
--- NOTE | 2019-05-04 15:59 | CON ---
DATE OF TELEMEDICINE CONSULTATION 05-04-19 WITH HALLE RODAS: CHIEF COMPLAINT: Parkinson disease and complications. HISTORY OF PRESENT ILLNESS: Reading through the chart, I understand we are requested to consult because of her falls and Parkinson disease and for medical management. The patient gave me medical history of having Parkinson disease for 18 years. Her symptoms started first with left leg tremor. The patient has gradually worsened with regard to her Parkinson's and has developed more and more balance problems due to expected disease progression and she has been using a four-wheel walker for the last 2 years. She has been having fainting spells secondary to orthostatic hypotension, which once again is related to her Parkinson's and she was on midodrine in the past. For the last 2 years, she has been developing hallucination. She tried Nuplazid, which does not help her. She does not remember if she tried Seroquel. She has very mild memory problems and she reports they have tried 4 to 5 different medications for her hallucinations, none of them worked. The patient is currently residing in a nursing facility and she recently moved from that facility into a new one and is waiting to see a neurologist. At home, she is ambulatory using a walker. PREVIOUS MEDICAL HISTORY: The patient has 18-year history of Parkinson disease, orthostatic hypotension, valvular heart disease, and hallucinations. PAST SURGICAL HISTORY: Right hip open reduction and internal fixation, appendectomy, splenectomy, partial hysterectomy, and right hip, right wrist and hand surgery. FAMILY HISTORY: Mother at 89 following congestive heart failure. Father at 68, he had lung cancer and brain cancer. Her brother at 81, he was a smoker, had a stroke, was in wheelchair for 17 years prior to . The patient has three sons and a daughter. One of her sons is the chief of ICU in [place] at [employer]. SOCIAL HISTORY: The patient lives with her in an independent living facility. No smoking or alcohol use. She drinks once a year. ALLERGIES: SHE IS ALLERGIC TO GABAPENTIN, HYDRALAZINE, LIDOCAINE, PENICILLIN, AND TRAMADOL. MEDICATIONS: At home, she is on, 1. Amantadine 100 mg per day. 2. Aspirin 81 mg per day. 3. Sinemet CR 25, 103 tablets t.i.d. 4. Ibuprofen 400 mg daily, ibuprofen 800 mg daily at bedtime. 5. Midodrine 20 mg as needed. 6. Requip 3 mg t.i.d. 7. Acetaminophen 650 mg as needed. 8. MiraLAX once daily. 9. Sennosides. REVIEW OF SYSTEMS: PULMONARY: Negative for cough, shortness of breath, or wheezing. CARDIOVASCULAR: Negative for chest pain or palpitations. GI: Negative for diarrhea, vomiting, or nausea. Positive for constipation. CARDIAC: Positive for orthostatic hypotension. She tends to fall a lot and tends to faint. NEUROLOGIC: Positive for Parkinson disease. DERMATOLOGIC: Negative for any skin lesions. OPHTHALMOLOGIC: Positive for macular degeneration in her right eye. HEMATOLOGIC: Negative for any bleeding diathesis or platelet dysfunction. LABORATORY WORKUP: White count 5.5, hemoglobin 11.1, hematocrit 34.7, platelets 280. Chemistry; sodium 138, potassium 3.7, chloride 95, BUN 28, creatinine 1.14 , glucose 102, and troponin I 0.025. BNP 3934.5, and liver functions within normal limits. Her imaging studies; she did have a CT of the head, which was negative for any acute intracranial abnormalities. PHYSICAL EXAMINATION: VITAL SIGNS: Temperature 98.8, pulse 75, respiratory rate 17, and blood pressure 135/64. I requested orthostatic measurement, and while sitting, her blood pressure was 166/87. When standing, her blood pressure was 149/77. GENERAL APPEARANCE: Thin built, well-nourished lady, who is comfortable in bed. CHEST: Clear vesicular breathing. CARDIOVASCULAR: S1 and S2 heard. No murmurs. ABDOMEN: Soft. NEUROLOGIC: Higher intellectual functions. Normal orientation to time, place, and person. She missed the date, and appropriate conversation. Cranial nerves, normal extraocular movements. Pupils are 2 mm, reactive to light. Normal sensation of face bilaterally. Tongue midline. No atrophy noted. No facial asymmetry noted. Normal hearing to finger rub bilaterally. Tongue is midline. Normal elevation of palate. Motor examination; bulk normal, tone is increased on the right side. Strength 5/5 throughout in iliopsoas, hamstrings, quadriceps, ankle dorsiflexion , plantarflexion, deltoid, biceps, triceps, wrist extension and flexion, finger extension and flexion bilaterally. Deep tendon reflexes are 2+ throughout. Sensory, normal to touch bilaterally. Cerebellar, normal mllqrw-xn-vlyz and mejo-ny-owds. Involuntary movements; she had resting tremor in both legs, right greater than left. IMPRESSION: The patient is an 88-year-old lady with 18-year history of Parkinson disease, who lives in an independent living facility with her and they sent her here since she fell. She has had two falls after fainting and she has been having hallucinations for the past two years. I think she has had expected progression of her Parkinson disease and might have some cognitive issues, which need to be further evaluated as outpatient. Her clinical examination shows rest tremor, right worse than the left in the lower extremities only and she was generally bradykinetic. Gait was not tested, and her strength is normal as expected. Diagnosis is most consistent with complicated Parkinson disease with gait and balance disturbance, hallucinations, and orthostatic hypotension. TREATMENT RECOMMENDATIONS: 1. Please discontinue amantadine so we can review if amantadine is contributing to the hallucinations, which is usually the case. 2. Please keep monitoring the orthostatic vitals and if she continues to have significant drop in blood pressure, we may have to reintroduce midodrine at 2.5 mg three times daily. Please consider short stay for rehab to improve her gait and balance. I will follow up tomorrow again. Job ID: [id number] [facility]
[2019-05-05 05:49] LABS: Anion Gap 14 mmol/L (10-20); BUN (Urea Nitrogen) 33 mg/dL (9.8-20.1); Calc. Creatinine Clearance 28 mL/min (70-130); Calcium 9.1 mg/dL (7.8-10.44); Carbon Dioxide 29 mmol/L (23-31); Chloride 95 mmol/L (98-107); Estimated GFR-MDRD 47; Glucose 88 mg/dL (83-110); Potassium 3.6 mmol/L (3.5-5.1); Sodium 134 mmol/L (136-145)
[2019-05-05 06:49] LABS: Band 2 % (5-11); Eosinophils 3 % (0-10); Hemoglobin 11.3 g/dL (12.0-16.0); Lymphocytes 26 % (21-51); MDiff Complete? YES; Mean Corpuscular HGB CONC 32.4 g/dL (32.0-36.0); Mean Corpuscular Hemoglobin 31.7 pg (27.0-31.0); Mean Corpuscular Volume 97.8 fL (78.0-98.0); Mean Platelet Volume 9.7 fL (7.4-10.4); Monocytes 13 % (0-10); Neutrophil 55 % (42-75); Platelet Count 302 thou/uL (130-400); RBC Distribution Width 15.5 % (11.5-14.5); Red Blood Cell (RBC) Count 3.56 mill/uL (4.20-5.40)
[2019-05-05] MEDS: Aspirin 81 mg Enteric Coated Tablet PO SCH (09:02)
[2019-05-05] MEDS: Senokot S 8.6-50 MG TAB PO SCH ×2 (09:02→20:15)
[2019-05-05] MEDS: Carbidopa/Levodopa CR 50-200 mg Tablet PO SCH (09:02)
[2019-05-05] MEDS: rOPINIRole HCl 1 MG TAB PO SCH ×3 (09:02→19:53)
[2019-05-05] MEDS: Enoxaparin Sodium 30 MG/0.3 ML SYRINGE SC SCH (09:03)
[2019-05-05] MEDS: Polyethylene Glycol 3350 17 GM Packet PO SCH (09:03)
[2019-05-05] MEDS: Carbidopa/Levodopa 25-100 mg Tablet PO SCH ×3 (12:18→18:23)
--- NOTE | 2019-05-05 12:42 | PRG ---
DATE OF TELEMEDICINE SERVICE: 05/05/2019 CHIEF COMPLAINT: Parkinson disease. INTERVAL HISTORY: The patient reports her hallucinations were not as bad yesterday compared to before. She is having some dyskinesia this morning. was in the room as well. LABORATORY WORKUP: White count 6, hemoglobin 11.3, hematocrit 34.9, and platelet count 302. Chemistry; sodium 134, potassium 3.6, chloride 95, bicarb 29, BUN 14. PHYSICAL EXAMINATION: VITAL SIGNS: Temperature 97.6, pulse 74, respiratory rate 18, O2 saturation is 98, and blood pressure 124/64. GENERAL APPEARANCE: Thin built, well-nourished lady, who is in bed and seems to have dyskinesia mostly in the upper body today. NEUROLOGIC: Higher intellectual functions are normal. Cranial nerves, normal extraocular movements. Tongue midline. No atrophy noted. No facial asymmetry. Motor exam; bulk normal. Tone normal. Strength 5/5 in upper and lower extremities. Gait not tested. IMPRESSION: The patient is an 88-year-old lady with complications from Parkinson disease. 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 She had less hallucinations since dropping amantadine yesterday. TREATMENT RECOMMENDATIONS: 1. Stop amantadine. 2. Stop Sinemet CR. 3. Start Sinemet 25/100, 1-1/2 tablets 4 times a day at 7, 11, 3, and 7 at Joshua interval. This should help with her motor function. I will see her again as needed. Please call me if you have questions. Job ID: [id number] [facility]
--- NOTE | 2019-05-05 15:09 | PDOC.HOSPP ---
- Subjective Encounter Date: 05/05/19 Encounter Time: 15:07 Subjective: 88 y/o female with Parkinson associated with movement disorder and gait instability currently mostly on wheel chair admitted due to frequent falls from wheelchair. No new problem. Medications adjusted by Neurology. - Objective Vital Signs & Weight: Vital Signs (12 hours) Temp Pulse Resp BP BP Pulse Ox 05/05/19 12:55 98.2 F 88 18 144/89 H 96 05/05/19 07:46 97.6 F 74 18 124/64 98 Weight Admit Weight 106 lb 6 oz Weight 106 lb 6 oz I&O: 05/04/19 05/05/19 05/06/19 06:59 06:59 06:59 Intake Total 500 1650 Output Total 2250 600 Balance -1750 1050 Result Diagrams: 05/05/19 04:35 05/05/19 04:35 ROS - Medication Medications: Active Medications Generic Name Dose Route Start Last Admin Trade Name Freq PRN Reason Stop Dose Admin Aspirin 81 mg 05/04/19 09:00 05/05/19 09:02 Ecotrin PO 81 mg DAILY JEISON Administration Carbidopa/Levodopa 2 tab 05/05/19 11:00 05/05/19 12:18 Sinemet 25-100 PO 2 tab 0700,1100,1500,1900 JEISON Administration Enoxaparin Sodium 30 mg 05/05/19 09:00 05/05/19 09:03 Lovenox SC 30 mg 0900 JEISON Administration Polyethylene Glycol 17 gm 05/04/19 09:00 05/05/19 09:03 Miralax PO 17 gm DAILY JEISON Administration Ropinirole HCl 3 mg 05/04/19 09:00 05/05/19 09:02 Requip PO 3 mg TID JEISON Administration Senna/Docusate Sodium 2 tab 05/04/19 09:00 05/05/19 09:02 Senokot S PO 2 tab BID JEISON Administration Sodium Chloride 10 ml 05/04/19 21:00 05/05/19 09:03 Flush - Normal Saline IVF 10 ml Q12HR JEISON Administration - Exam awake alert General - other findings: involuntary movements of the head and neck noted ENT: normocephalic atraumatic Neck: supple, symmetric, no JVD Heart: RRR, murmur present Respiratory: no wheezes, no rales, no ronchi Gastrointestinal: soft, non-tender, non-distended, normal bowel sounds Extremities: no cyanosis, no edema Neurological: CN's grossly intact, no focal deficits Neurological - other findings: tremors and involuntary movement of head and neck noted Psychiatric: normal affect, A&O x 3 Hosp A/P (1) Parkinson disease Code(s): G20 - PARKINSON'S DISEASE Status: Acute (2) Labile blood pressure Code(s): R09.89 - OTH SYMPTOMS AND SIGNS INVOLVING THE CIRC AND RESP SYSTEMS Status: Acute (3) Autonomic dysfunction Code(s): G90.9 - DISORDER OF THE AUTONOMIC NERVOUS SYSTEM, UNSPECIFIED Status : Acute (4) Abnormal involuntary movement Code(s): R25.9 - UNSPECIFIED ABNORMAL INVOLUNTARY MOVEMENTS Status: Acute (5) Gait instability Code(s): R26.81 - UNSTEADINESS ON FEET Status: Acute (6) Recurrent falls Code(s): R29.6 - REPEATED FALLS Status: Acute (7) Mitral and aortic heart valve diseases, unspecified Code(s): I08.0 - RHEUMATIC DISORDERS OF BOTH MITRAL AND AORTIC VALVES Status: Acute (8) Elevated brain natriuretic peptide (BNP) level Code(s): R79.89 - OTHER SPECIFIED ABNORMAL FINDINGS OF BLOOD CHEMISTRY Status : Acute (9) Valvular heart disease Status: Acute - Plan Monitor patient with medication adjustment as per Neurolgy. Continue PT/OT Rehab screening consulted. Awaiting echo diet as tolerated. Monitor vitals.
[2019-05-06 06:28] LABS: Anion Gap 14 mmol/L (10-20); BUN (Urea Nitrogen) 30 mg/dL (9.8-20.1); Calc. Creatinine Clearance 27 mL/min (70-130); Calcium 9.5 mg/dL (7.8-10.44); Carbon Dioxide 28 mmol/L (23-31); Chloride 93 mmol/L (98-107); Estimated GFR-MDRD 48; Glucose 108 mg/dL (83-110); Magnesium 2.1 mg/dL (1.6-2.6); Potassium 3.4 mmol/L (3.5-5.1); Sodium 132 mmol/L (136-145)
[2019-05-06] MEDS: Carbidopa/Levodopa 25-100 mg Tablet PO SCH ×4 (06:55→18:06)
[2019-05-06] MEDS: Aspirin 81 mg Enteric Coated Tablet PO SCH (08:14)
[2019-05-06] MEDS: Polyethylene Glycol 3350 17 GM Packet PO SCH (08:14)
[2019-05-06] MEDS: Enoxaparin Sodium 30 MG/0.3 ML SYRINGE SC SCH (08:14)
[2019-05-06] MEDS: rOPINIRole HCl 1 MG TAB PO SCH ×3 (08:14→20:41)
[2019-05-06] MEDS: Senokot S 8.6-50 MG TAB PO SCH ×2 (08:14→20:41)
--- NOTE | 2019-05-06 12:48 | PRG ---
DATE OF TELEMEDICINE SERVICE: 05/06/2019 CHIEF COMPLAINT: Orthostatic hypotension. INTERVAL HISTORY: The patient has stayed in the room with her friend. The patient and her friend say her medication schedule is somewhat helpful at this time. Her nurse was concerned about her hypotension and wanted to see if we can give her midodrine. Whenever she stands up, she is having low blood pressure as per the nurse. Dyskinesia has stopped. No new labs today other than sodium 132, potassium 3.4, chloride 93, bicarb 28, BUN 30, creatinine 1.09, glucose 108. PHYSICAL EXAMINATION: VITAL SIGNS: Temperature is 98.1, pulse 78, respiratory rate 18, blood pressure 146/72. NEUROLOGIC: Higher intellectual functions normal. Cranial nerves, normal extraocular movements. Motor exam, normal strength throughout. Involuntary movements; no tremor was noted, but she had generalized bradykinesia and hypomania. IMPRESSION: The patient with Parkinson disease and orthostatic hypotension related to it. At this time, she seems to still have blood pressure fluctuations. It would be difficult to start her on regular dosage of midodrine due to risk of hypertension. TREATMENT RECOMMENDATIONS: Continue current dosage of levodopa, please make sure she does not get amantadine again. She seems to have improvement in hallucination since stopping amantadine. Give her midodrine 2.5 mg three times daily and hold if blood pressure is greater than 120/80. Please call Dr. Lezama if you need any further assistance with this patient. Most of this Parkinson's medication management can be done as outpatient by her neurologist. Job ID: [id number] [facility]
--- NOTE | 2019-05-06 14:49 | PDOC.HOSPP ---
- Subjective Subjective: Seen and examined. 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 Patient knows self, year, she does not know where she is and believes [facility]. 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 Some back pain, normally has fentanyl patch, which we will be restarting. BP improving on midodrine. Neurology following. - Objective Vital Signs & Weight: Vital Signs (12 hours) Temp Pulse Pulse Resp BP BP BP 05/06/19 11:38 98.0 F 78 18 133/86 05/06/19 10:25 97 177/93 H 05/06/19 08:01 98.1 F 78 18 146/72 H 05/06/19 03:37 97.6 F 90 Pulse Ox 05/06/19 11:38 95 05/06/19 10:25 05/06/19 08:01 95 05/06/19 03:37 97 Weight Admit Weight 106 lb 6 oz Weight 101 lb 3.2 oz I&O: 05/05/19 05/06/19 05/07/19 06:59 06:59 06:59 Intake Total 1650 1360 Output Total 600 1225 Balance 1050 135 Result Diagrams: 05/05/19 04:35 05/06/19 05:25 Radiology Reviewed by me: Yes (Echo) ROS - Medication Medications: Active Medications Generic Name Dose Route Start Last Admin Trade Name Freq PRN Reason Stop Dose Admin Aspirin 81 mg 05/04/19 09:00 05/06/19 08:14 Ecotrin PO 81 mg DAILY JEISON Administration Carbidopa/Levodopa 2 tab 05/05/19 11:00 05/06/19 11:36 Sinemet 25-100 PO 2 tab 0700,1100,1500,1900 JEISON Administration Enoxaparin Sodium 30 mg 05/05/19 09:00 05/06/19 08:14 Lovenox SC 30 mg 0900 JEISON Administration Polyethylene Glycol 17 gm 05/04/19 09:00 05/06/19 08:14 Miralax PO 17 gm DAILY JEISON Administration Ropinirole HCl 3 mg 05/04/19 09:00 05/06/19 08:14 Requip PO 3 mg TID JEISON Administration Senna/Docusate Sodium 2 tab 05/04/19 09:00 05/06/19 08:14 Senokot S PO 2 tab BID JEISON Administration Sodium Chloride 10 ml 05/04/19 21:00 05/06/19 08:14 Flush - Normal Saline IVF 10 ml Q12HR JEISON Administration - Exam NAD, awake alert Eye: PERRL Eye - other findings: EOMI ENT: normocephalic atraumatic Neck: supple, no JVD Heart: no gallops, no rubs Heart - other findings: S1 and S2 present Respiratory: CTAB, no wheezes, no rales, no ronchi Gastrointestinal: soft, non-tender, non-distended, normal bowel sounds Extremities: no edema Neurological: CN's grossly intact, no weakness, no focal deficits, no new deficit Musculoskeletal: normal tone, normal strength Psychiatric: normal affect, oriented to person, oriented to time Hosp A/P - Plan old records reviewed/req Plan: Neurology following, recommendations appreciated Amantadine has been D/c - likely cause of AMS/ hallucinations per Neuro BP improving on Midodrine, hold if BP >120/80 Continue other home meds as able Echo with preserved EF, though Severe - will need outpatient follow up and monitoring DVT PPX GI PPX Plan for sub acute placement, manager application consult for D/c planning
[2019-05-06] MEDS: Midodrine HCl 5 MG TAB PO SCH ×2 (16:19→20:40)
[2019-05-07] MEDS ORDERED: Labetalol HCl 100 MG/20 ML VIAL SLOW IVP SCH ×2 (00:15→06:15)
[2019-05-07] MEDS: Carbidopa/Levodopa 25-100 mg Tablet PO SCH ×2 (06:10→11:59)
[2019-05-07] MEDS: Senokot S 8.6-50 MG TAB PO SCH (08:41)
[2019-05-07] MEDS: Aspirin 81 mg Enteric Coated Tablet PO SCH (08:41)
[2019-05-07] MEDS: Enoxaparin Sodium 30 MG/0.3 ML SYRINGE SC SCH (08:42)
[2019-05-07] MEDS: Polyethylene Glycol 3350 17 GM Packet PO SCH (08:42)
[2019-05-07] MEDS: Midodrine HCl 5 MG TAB PO SCH (08:42)
[2019-05-07] MEDS: rOPINIRole HCl 1 MG TAB PO SCH (08:47)
[2019-05-07 12:04] VITALS: BP 165/79; TEMP 97.9
--- NOTE | 2019-05-08 01:10 | DIS ---
DATE OF ADMISSION: 05/03/2019 DATE OF DISCHARGE: 05/07/2019 REASON FOR HOSPITALIZATION: Fall. SIGNIFICANT FINDINGS: The patient had an echocardiogram that did demonstrate severe aortic stenosis and this was recommended to be followed up in the outpatient setting with Cardiology. PROCEDURES PERFORMED AND TREATMENTS RENDERED: The patient had radiographic imaging with CT scan of the brain, please see full report for details. No acute intracranial pathology was identified. The patient had x-ray of the hip, please see full report for details, stable exam without acute fracture. The patient was seen and evaluated by Neurology, please see full consultation and progress notes for details. Neurology adjusting Parkinson's medications with some improvement in the symptoms. CONDITION ON DISCHARGE: Stable. SPECIFIC INSTRUCTIONS FOR THE PATIENT/FAMILY: 1. The patient is to have 24 hours/7 days a week supervision by family and personal care assistance to avoid future falls. 2. The patient is to continue with physical therapy and occupational therapy by home health. 3. The patient is to follow up with primary care physician in the next 5 to 7 days. 4. The patient is to follow up with neurologist in the next 1 to 2 weeks. 5. The patient is recommended to return to acute care hospital immediately if signs or symptoms return, worsen, or any other new symptoms occur. MEDICATIONS: The patient's home medications were all continued with the following changes: 1. The patient was recommended changing her carbidopa/levodopa to 2 tablets four times a day by the neurologist. 2. Midodrine 2.5 mg t.i.d. p.r.n. low blood pressure, rather than a scheduled medication. HISTORY OF PRESENT ILLNESS: Ms. Chacon is a very pleasant 88-year-old female with past medical history of Parkinson disease, frequent falls, recent intertrochanteric fracture, status post repair, who presents with acute fall. Upon presenting to the emergency department, the patient had x-ray of the hip, which did demonstrate intertrochanteric fracture that is stabilized with compression of screw and side plate. There are no other acute fractures seen on x-ray. The patient had a CT scan of the brain that was negative for acute intracranial pathology. The patient does have advanced Parkinson disease and Neurology consultation was requested, please see full consultation and progress notes for details. Neurology adjusting the patient's Parkinson's medication and there was some improvement of symptoms. The patient did have an echocardiogram, please see full report for details, the patient with preserved ejection fraction, was noticed to have critical/severe aortic stenosis , and she was recommended to follow up in the outpatient setting with her farmworker. The patient worked with physical therapy and occupational therapy who recommended that she be discharged to acute rehab versus jail facility. After a long discussion with myself, the patient, and the patient's , the patient and family have refused any subacute placement and declined going to rehab. I explicitly informed them the risks of not going to rehab does include future falls. They do acknowledge these risks and state that she has been to rehab in the past and they did not think it helped. The patient was recommended safe for discharge by Neurology with followup in the outpatient setting. The patient is recommended to take all medications as directed, to be re-evaluated by primary care physician in the next 5 to 7 days. The patient is recommended to follow up with Neurology in the next 1 to 2 weeks. The patient is recommended to follow up with Cardiology for aortic stenosis. The patient is recommended to return to acute care hospital immediately if signs or symptoms return, worsen, or any other new symptoms occur. Discharge process and coordinating care took greater than 33 minutes. Job ID: [id number] [facility]
== END 2019-05-07 14:30 | disposition home health service (06) | DRG 57 ==
LOC: ERS 17:03 → 2NO 18:50
PROVIDERS: ADMIT Internal Medicine; ATTEND Internal Medicine
DX: G20 Parkinson's disease (principal); I08.0 Rheumatic disorders of both mitral and aortic valves; I12.9 Hypertensive chronic kidney disease with stage 1 through stage 4 chronic kidney disease, or unspecified chronic kidney disease; N18.3 Chronic kidney disease, stage 3 (moderate); I95.1 Orthostatic hypotension; R09.89 Other specified symptoms and signs involving the circulatory and respiratory systems; G90.9 Disorder of the autonomic nervous system, unspecified; R26.81 Unsteadiness on feet; R29.6 Repeated falls; T42.8X5A Adverse effect of antiparkinsonism drugs and other central muscle-tone depressants, initial encounter; R79.89 Other specified abnormal findings of blood chemistry; Z88.0 Allergy status to penicillin; Z88.8 Allergy status to other drugs, medicaments and biological substances; Z79.82 Long term (current) use of aspirin; Z79.899 Other long term (current) drug therapy
CPT/HCPCS: 36415; 70450; 71045; 80048; 80053; 81003; 82550; 83605; 83735; 83880; 84484; 85007; 85025; 85027; 93306; J1650; J1940